=== PATIENT | male | born 1950 | race Caucasian/White ===

== ENCOUNTER 2023-08-18 12:46 | Emergency (ER) | payer MEDICARE, BC, SELFPAY ==
[2023-08-18 13:05] VITALS: BP 111/76
[2023-08-18 13:40] LABS: % Basophils 1.1 % (0-2); % Eosinophils 0.9 % (0-6); % Immature Granulocytes 0.3 % (0-0.5); % Lymphocytes 22.5 % (20.5-51.1); % Monocytes 7.3 % (1.7-9.3); % Neutrophils 67.9 % (42.2-75.2); Absolute Basophils 0.1 10^3/uL (0-0.2); Absolute Eosinophils 0.1 10^3/uL (0-0.7); Absolute Lymphocytes 1.8 10^3/uL (1.2-3.4); Absolute Monocytes 0.6 10^3/uL (0.1-0.6); Absolute Neutrophils 5.3 10^3/uL (1.4-6.5); Hematocrit 40.4 % (39.0-52.0); Hemoglobin 13.7 g/dL (13.0-18.0); Mean Corp Hgb Conc. 33.9 g/dL (33.0-37.0); Mean Corpuscular Hgb 31.1 pg (27.0-31.0); Mean Corpuscular Volume 91.6 fL (80.0-94.0); Mean Platelet Volume 9.8 fL (7.4-10.4); Nucleated Red Blood Cells % 0 % (-); Platelet Count 613 10^3/uL (130-400); Red Blood Cell Count 4.41 10^6/uL (4.70-6.10); Red Cell Dist. Width 14.2 % (11.5-14.5); White Blood Cell Count 7.9 10^3/uL (4.8-10.8)
--- NOTE | 2023-08-18 14:02 | ED.GENMED ---
History of Present Illness
<Baylee Steel PA-C - Last Filed: 08/18/23 20:37>
General
Chief Complaint: Dizziness
Source: patient
Exam Limitations: none
Time Seen by Provider: 08/18/23 13:39
Nursing documentation reviewed up to this point in time: agreed with
History of Present Illness
History of Present Illness:
This is a 72-year-old male with a past medical history of TIA, depression, A-fib on Xarelto presenting emergency department today with concerns of dizziness. Patient states that he was walking down the stairs today of his basement and when he
reached the bottom of the stairs, he suddenly felt dizzy and lightheaded. Patient states that he felt unsteady on his feet and had to lean against the wall. Patient states that this episode lasted around 8 minutes. This episode was at 10 AM
today. Patient is never anything like this before. Patient feels well now, declines any dizziness currently, has had no further episodes. Patient denies any syncopal episodes. Patient denies any falls, hitting his head. Patient states that at
the time of the TIA, he was apparently seen at [facility] but he is not recall he was admitted to the hospital or not. Patient was never on aspirin, Plavix, or any statin therapy. Patient states that his heart rate normally runs lower and states
that he runs 4 miles every day. Patient denies any visual changes, one-sided weakness, difficulty speaking, chest pain, shortness of breath, abdominal pain, fevers or chills, nausea or vomiting. Patient states that he has been in a lot of stress
recently and believes that may be contributing to his symptoms.
Review of Systems
<Baylee Steel PA-C - Last Filed: 08/18/23 20:37>
Review of Systems
All Other Systems: ROS reviewed and negative except as documented in HPI and ROS
Phy Exam
<Baylee Steel PA-C - Last Filed: 08/18/23 20:37>
Physical Exam
Physical Exam:
General: Patient is well appearing and in no acute distress; non-toxic
Skin: Warm and dry, no rashes or lesions
Head: Normocephalic, atraumatic
Eyes: Sclera non-icteric. EOMs intact. PERRLA
Cardiac: Regular rate and rhythm, no murmurs
Peripheral Vascular: No lower extremity swelling or edema
Pulm: Normal respiratory effort, no wheezes, rales, rhonchi
Abdomen: No abdominal tenderness
Neuro: CN II-XII intact, no focal neurologic deficits.
Psychiatric: Appropriate mood and affect.
Course
<Baylee Steel PA-C - Last Filed: 08/18/23 20:37>
Orders/Labs/Results
Orders:
Orders
08/18/23 13:09
Electrocardiogram (*1) Urgent
Reason for Study: Vertigo / Dizzy
CT Head W/o Iv Contrast Urgent
Comment: hx TIA
Reason For Exam: dizzy spell this morning
08/18/23 13:10
EKG- Treatment ONCE
08/18/23 13:16
Complete Blood Count/With Diff Urgent
Comprehensive Metabolic Panel Urgent
08/18/23 13:48
Orthostatic VS- Treatment ONCE
Abnormal Lab Results
08/18/23
13:16
RBC 4.41 L 10^6/uL
(4.70-6.10)
MCH 31.1 H pg
(27.0-31.0)
Plt Count 613 H 10^3/uL
(130-400)
08/18/23 13:16
08/18/23 13:16
Vital Signs
Initial and Last Documented VS:
Initial Vital Signs
Temp Pulse Resp BP Pulse Ox
98.2 F 61 16 111/76 98
08/18/23 13:05 08/18/23 13:05 08/18/23 13:05 08/18/23 13:05 08/18/23 13:05
Last Documented Vital Signs
Temp Pulse Resp BP Pulse Ox
98.2 F 61 16 111/76 98
08/18/23 13:05 08/18/23 13:05 08/18/23 13:05 08/18/23 13:05 08/18/23 13:05
<Estrada Wilkins Ferny, DO - Last Filed: 08/18/23 14:42>
Orders/Labs/Results
Orders:
Orders
08/18/23 13:09
Electrocardiogram (*1) Urgent
Reason for Study: Vertigo / Dizzy
CT Head W/o Iv Contrast Urgent
Comment: hx TIA
Reason For Exam: dizzy spell this morning
08/18/23 13:10
EKG- Treatment ONCE
08/18/23 13:16
Complete Blood Count/With Diff Urgent
Comprehensive Metabolic Panel Urgent
08/18/23 13:48
Orthostatic VS- Treatment ONCE
Abnormal Lab Results
08/18/23
13:16
RBC 4.41 L 10^6/uL
(4.70-6.10)
MCH 31.1 H pg
(27.0-31.0)
Plt Count 613 H 10^3/uL
(130-400)
08/18/23 13:16
08/18/23 13:16
Vital Signs
Initial and Last Documented VS:
Initial Vital Signs
Temp Pulse Resp BP Pulse Ox
98.2 F 61 16 111/76 98
08/18/23 13:05 08/18/23 13:05 08/18/23 13:05 08/18/23 13:05 08/18/23 13:05
Last Documented Vital Signs
Temp Pulse Resp BP Pulse Ox
98.2 F 61 16 111/76 98
08/18/23 13:05 08/18/23 13:05 08/18/23 13:05 08/18/23 13:05 08/18/23 13:05
<Baylee Steel PA-C - Last Filed: 08/18/23 20:37>
MDM/Problems Addressed
Differential Diagnosis Includes:
ddx include vasovagal pre-syncope, posterior TIA, electrolyte derangement, atrial fibrillation
MDM/Problems Addressed:
Dizziness:
This is a 72-year-old male with a past medical history of TIA, depression, A-fib on Xarelto presenting emergency department today with concerns of dizziness. Episode lasted approximately 8 minutes. Patient states that this occurred while he was
walking down the basement stairs. Patient states that his symptoms have completely resolved and he feels back to his normal self. Patient able to walk without any difficulties. Patient denies any visual changes, speaking, confusion, he has a
nonfocal neurologic exam. CBC and CMP unremarkable remarkable, patient does have some bradycardia on EKG however patient states that this is his baseline. CT negative for any acute intracranial normality. Patient will follow-up as outpatient.
Chronic conditions affecting care:
afib s/p ablation, TIA, depression
Acute Exacerbation and/or Progression of Chronic Illness:
afib s/p ablation, TIA, depression
<Baylee Steel PA-C - Last Filed: 08/18/23 20:37>
*Pulse Oximetry
Patient hypoxic: no
*EKG
Interpreted by ED Provider?: Yes
EKG Intrepretation Date: 08/18/23
Interpretation: abnormal
Comparison EKG: no comparison EKG present
Heart Rate: 52
Rate: bradycardiac
Rhythm: sinus
[place]: normal axis
Interval: other (prolonged HI, first degree AV block)
QRS Pattern: normal QRS
Ischemia: no ischemia
*Critical Care Note
Total Time (30-74mins, 75-104mins- exclusive of procedures): Not Applicable
Data Reviewed
Review of Other/Old Records Reveals: Records (no previous ER visits to review; patient states that he receives the majority of his medical care at [facility]) and Discharge Summary (no discharge summaries to review)
Source: patient and records
Prescriptions/Medications Considered But Not Given:
considered cta however patient's symptoms have resolved and patient has no residual focal neurologic deficits
<Baylee Steel PA-C - Last Filed: 08/18/23 20:37>
Patient Management
Escalation/DeEscalation of care consider admission/obs:
Admit not indicated---discussed admission with patient for MRI and further workup, patient declining, considering patient's brief episode, I think outpatient follow up is reasonable. Return precautions discussed
ED Attending Note
<Baylee Steel PA-C - Last Filed: 08/18/23 20:37>
-
Portions of this chart may have been created with voice recognition software.� Occasional wrong word or��sound alike� substitutions may have occurred due to the inherent limitations of voice recognition software.
<Estrada Isaacs DO - Last Filed: 08/18/23 14:42>
ED Attending Note
Patient seen and examined by attending physician: Yes
I performed the substantive portion of visit, reviewed & personally made and approve the management plan that is documented in note by myself or AGUILA.: Yes
I performed a history and physical exam of patient and discussed management with resident, I reviewed resident's note and agree with documented findings and plan of care.: Yes
ED Attending Note:
I evaluated the patient at bedside. The patient is not currently ataxic. He had about an 8-minute episode of trouble walking earlier in the day. He currently has a nonfocal examination. I personally viewed CT imaging of the head which shows no
acute abnormality. Offered and considered further evaluation however the patient strongly prefers outpatient management.
Discharge Plan
Departure
Patient Disposition: Home (Routine Discharge)
Date of Disposition: 08/18/23
Time of Disposition: 14:41
Patient with high blood pressure during this ER visit?: Yes
Condition: Good
Discharge Problem:
Dizziness
Instructions: Dizziness
Activity Restrictions/Additional Instructions:
Please follow-up with your primary care provider. Please return the emergency department should you experience
Please return to the emergency department should you experience weakness on one side of your body versus other, chest pain, shortness of breath, syncopal episodes, visual loss, eye pain, back pain, slurring of words, confusion, difficulty speaking,
or any other signs or symptoms concerning to you.
Interventions
Interventions:
*Risk Screen - Suicide Last Done: 08/18/23 14:52
*General Assessment Last Done: 08/18/23 14:37
*Neglect/Abuse Screening Last Done: 08/18/23 14:37
ED- Fall Risk Assessment Last Done: 08/18/23 14:53
*ED COVID-19 Vaccine History Last Done: 08/18/23 13:05
*Nursing Disposition Last Done: 08/18/23 14:53
ED- Neurological Assessment Last Done: 08/18/23 14:37
ED- Cardiac Assessment Last Done: 08/18/23 14:53
Discharge Date and Time
Discharge Date/Time: 08/18/23 15:16
Print Language: DIVEHI
[2023-08-18 14:08] LABS: ALT (SGPT) 24 U/L (0-50); AST (SGOT) 25 U/L (17-59); Albumin 4.3 g/dl (3.5-5.0); Alkaline Phosphatase 64 U/L (38-126); Blood Urea Nitrogen 17 mg/dl (9-20); Calcium 9.8 mg/dl (8.4-10.2); Carbon Dioxide 27 mmol/L (22-30); Chloride 103 mmol/L (98-107); Glucose 95 mg/dl (70-99); Potassium 4.7 mmol/L (3.5-5.1); Sodium 139 mmol/L (135-145); Total Bilirubin 1.3 mg/dl (0.2-1.3); Total Protein 6.8 g/dl (6.3-8.2); eGFR > 60.00
[2023-08-18 14:50] VITALS: BP 142/82; BP 156/80; BP 161/83; PULSE 48; PULSE 54; PULSE 56
== END 2023-08-18 15:16 | disposition home or self-care (01) ==
LOC: EMR 12:46
PROVIDERS: EMERGENCY PHYSICIAN Emergency Medicine; FAMILY PHYSICIAN Internal Medicine
DX: R42 Dizziness and giddiness (principal); R03.0 Elevated blood-pressure reading, without diagnosis of hypertension; Z73.3 Stress, not elsewhere classified; I48.91 Unspecified atrial fibrillation; F32.A Depression, unspecified; Z79.01 Long term (current) use of anticoagulants; Z86.73 Personal history of transient ischemic attack (TIA), and cerebral infarction without residual deficits
CPT/HCPCS: 99284; 70450; 80053; 85025; 93005